=== PATIENT | male | born 1970 | race Caucasian/White ===

== ENCOUNTER 2019-07-25 00:47 | Day surgery (SDC) | payer OTHER, SELFPAY ==
[2019-07-24 10:16] VITALS: BMI 29.9
[2019-07-25 08:57] VITALS: BP 145/108; PULSE 80; RESP 16; TEMP 36.5; O2SAT 99
--- NOTE | 2019-07-25 09:10 | P.HP_ITS ---
History of Present Illness History of Present Illness Consent: Risks, benefits, and alternatives have been discussed and questions answered. Patient agrees to proceed with procedure. Chief complaint: Epigastric Pain Narrative: Robles Roca is a 48 year old W male referred for gastroscopy for evaluation of postprandial nausea some abdominal pain. This occurred in April of this past year several months ago. Patient was placed on Prilosec 40 mg daily instead he was doing fine until week ago began having some indigestion some heartburn some substernal burning, While on therapy. He denies any dysphagia odynophagia. [facility] Past Medical History Medical History Nausea Surgical History Surgical History (Updated 07/25/19 @ 09:13 by Kendall Rodríguez MD) History of appendectomy Family History Family History Father Hypertension Mother Family history of lupus erythematosus Other Carcinoma of colon Family history of malignant neoplasm of stomach Social History Social History Smoking status: Former smoker Smoking end date: 05/30/04 Alcohol intake: current Meds Home Medications and Allergies Home Medications Medication Instructions Recorded Confirmed Type fluticasone propionate 50 1 spray NASAL DAILY PRN 05/28/19 07/25/19 History mcg/actuation nasal spray,suspension amlodipine 2.5 mg tablet 7.5 mg PO DAILY #90 tablet 07/09/19 07/25/19 Rx loratadine [Claritin] 10 mg PO DAILY 07/24/19 07/25/19 History omeprazole 40 mg PO QAM 07/24/19 07/25/19 History Allergies Allergy/AdvReac Type Severity Reaction Status Date / Time No Known Allergies Allergy Unverified 07/25/19 08:41 Vital Signs Vital Signs - 24 hr 07/25/19 08:57 Temperature 36.5 C Pulse Rate 80 Respiratory Rate 16 Blood Pressure 145/108 H Pulse Oximetry 99 Exam Const: Orientation/consciousness: patient oriented x3 Resp: Auscultation: clear to auscultation bilaterally Cardio: Rate: regular rate Rhythm: regular rhythm Heart sounds: no murmurs GI: GI Palp: Yes Soft to palpation, No Tenderness to palpation present (GI), Yes No hepatosplenomegaly present and No Palpable mass present Auscultation: normal bowel sounds Neuro: General: patient oriented x3 and no focal motor deficits Extrem: General: no pedal edema Assessment and Plan Additional Plan EGD for evaluation of dyspepsia post prandiall abdominal pain nausea indigestion
[2019-07-25] MEDS: LACTATED RINGERS 1,000 ML 150 ML IV CONT (09:14)
--- NOTE | 2019-07-25 09:14 | WPDANESEPPF ---
Anes - Initial Pre Proc Eval Procedure: Operation Date: 07/25/19 10:00 Proposed Procedures p Esophagogastroduodenoscopy - Kendall Rodríguez MD Date/Time: 07/25/19 09:14 Surgeon: Kendall Rodríguez MD Pre Op Diagnosis: Epigastric Pain Patient Data Age: 48 Gender: M Height: 5 ft 6 in Weight: 83.7 kg Last Vital Signs Temp 36.5 C 07/25/19 08:57 Pulse 80 07/25/19 08:57 Resp 16 07/25/19 08:57 BP 145/108 H 07/25/19 08:57 Pulse Ox 99 07/25/19 08:57 Allergies Allergy/AdvReac Type Severity Reaction Status Date / Time No Known Allergies Allergy Unverified 07/25/19 08:41 Home Medications Medication Instructions Recorded Confirmed Type fluticasone propionate 50 1 spray NASAL DAILY PRN 05/28/19 07/25/19 History mcg/actuation nasal spray,suspension amlodipine 2.5 mg tablet 7.5 mg PO DAILY #90 tablet 07/09/19 07/25/19 Rx loratadine [Claritin] 10 mg PO DAILY 07/24/19 07/25/19 History omeprazole 40 mg PO QAM 07/24/19 07/25/19 History Patient hx anesthesia problems: none Family hx anesthesia problems: none PMFSH Past Medical History Medical History Nausea Surgical History Surgical History History of appendectomy Family History Family History Father Hypertension Mother Family history of lupus erythematosus Other Carcinoma of colon Family history of malignant neoplasm of stomach Social History Social History Smoking status: Former smoker Smoking end date: 05/30/04 Alcohol intake: current Anes - Eval Final PreProcedure Day of Procedure 07/25/19 09:14 Patient weight: overweight Heart: regular rate and rhythm Lungs: clear to auscultation Airway: Mallampati scale class II Neurological: alert and oriented Last oral intake: >/= 8 hours ASA classification: II Emergent: no Anesthetic plan: proceed Anesthesia type and monitoring: general GIVS and standard monitoring Informed Consent: The patient's anesthetic plan and its attendant risks and benefits were discussed with the patient/family/POA. Questions were solicited and answers provided to the satisfaction of the patient/family/POA.
[2019-07-25] MEDS: BENZOCAINE (*SP) 60 ML SPRAY CAN (HURRICAINE) 1 SPRAY MUCOUS MEM (09:59)
[2019-07-25 10:11] VITALS: BP 109/67; PULSE 68; RESP 19; O2SAT 94
[2019-07-25 10:21] VITALS: BP 121/80; PULSE 73; RESP 24
[2019-07-25 10:31] VITALS: BP 126/86; PULSE 67; RESP 24; O2SAT 98
== END 2019-07-25 11:01 | disposition home or self-care (01) ==
PROVIDERS: PCP Family Medicine; Visit Provider Internal Medicine Gastroenterology
PROC: 0DJ08ZZ Inspection of Upper Intestinal Tract, Via Natural or Artificial Opening Endoscopic (ICD-10-PCS; CPT 43235; principal; 2019-07-25 10:00)
DX: R10.13 Epigastric pain (principal); R11.0 Nausea; Z87.891 Personal history of nicotine dependence
CPT/HCPCS: 43239; 87081; 88305; J2704; J7120

== ENCOUNTER 2020-07-14 09:10 | Outpatient (CLI) | payer OTHER, SELFPAY ==
[2020-07-14 09:35] LABS: Hematocrit 42.5 % (42.0-52.0); Hemoglobin 14.3 g/dL (14.0-18.0); Mean Corpuscular HGB Conc 33.6 g/dl (32-36); Mean Corpuscular Hemoglobin 32.1 pg (26-34); Mean Corpuscular Volume 95.3 fl (80-100); Mean Platelet Volume 8.7 fl (7.4-10.4); Platelet Count Result 206 k/mm3 (150-375); Red Blood Count 4.46 M/mm3 (4.6-6.20); Red Cell Distribution Width 12.3 % (11.5-14.5); White Blood Count 5.7 K/mm3 (4.5-10.0)
[2020-07-14 09:42] LABS: Add Urine Microscopic? YES; Appearance Urine Clear (Clear); Bacteria Urine Trace /hpf; Bilirubin Urine Negative (Negative); Blood Urine Negative (Negative); Color Urine Yellow (Yellow); Glucose Urine UA Negative (Negative); Ketones Urine Trace mg/dL (Negative); Leukocyte Esterase Ur Negative LEU/UL (NEGATIVE); Mucus Urine Heavy /lpf; Nitrate Urine Negative (Negative); Protein Urine 1+ mg/dL (Negative); RBC Urine 0-2 /hpf (0-2); Specific Grav Ur 1.027 (1.001-1.035); Urobilinogen Urine Negative mg/dL (<2.0); WBC Urine 0-3 /hpf (0-3)
[2020-07-14 09:50] LABS: Alanine Aminotransferase 27 U/L (4-50); Albumin Level 4.3 g/dL (3.5-5.1); Alkaline Phosphatase 54 U/L (38-126); Anion Gap 5 mmol/L (8-16); Aspartate Amino Transferase 29 U/L (17-59); Blood Urea Nitrogen 17 mg/dL (9-20); Calcium 9.1 mg/dL (8.4-10.2); Carbon Dioxide 31 mmol/L (22-30); Chloride 104 mmol/L (98-107); Cholesterol 166 mg/dL (0-200); Estimated Glomerular Filt Rate > 60; Glucose 87 mg/dL (75-110); HDL Direct 49 mg/dL; Potassium 4.4 mmol/L (3.4-5.0); Sodium 140 mmol/L (137-145); Triglycerides 68 mg/dL (<150)
[2020-07-14 10:01] LABS: LDL Cholesterol Direct 88 mg/dL
== END 2020-07-14 09:11 | disposition home or self-care (01) ==
PROVIDERS: PCP Family Medicine; Visit Provider Family Medicine
DX: I10 Essential (primary) hypertension (principal); Z00.00 Encounter for general adult medical examination without abnormal findings
CPT/HCPCS: 36415; 80053; 80061; 81001; 84443; 85027

== ENCOUNTER 2020-12-31 00:12 | Emergency (ER) | payer OTHER, SELFPAY ==
--- NOTE | ~2020-12-31 | CT_ITS ---
EXAMINATION: CT abdomen pelvis w con DATE: 12/31/2020 03:00 INDICATION: Right lower quadrant abdominal pain TECHNIQUE: Computed tomography (CT) of the abdomen and pelvis was performed with 100 cc Omnipaque 350 intravenous contrast. Automated exposure control and iterative reconstruction technique were employe d. Exam dose: 482.83 mGy-cm total exam DLP. COMPARISON: July 27, 2014 CT abdomen pelvis FINDINGS: The lung bases are clear. Normal heart size. No pericardial or pleural effusion. The liver, gallbladder, bile ducts, spleen, pancreas, adrenal glands and kidneys are unremarkable. No rmal caliber of the abdominal aorta. No intraperitoneal or retroperitoneal or pelvic mass lesion or a denopathy or ascites. Status post appendectomy. Mild colonic diverticulosis; no CT evidence of diverticulitis. No bowel obstruction or intraperitonea l free air. Bilateral L5 pars interarticularis defects without spondylolisthesis. No suspicious osteolytic or ost eoblastic lesions. IMPRESSION: Status post appendectomy Bilateral L5 pars interarticularis defects Reviewed, dictated and finalized at [facility]. Reviewed, dictated and finalized at location [facility].
[2020-12-31 00:15] VITALS: BP 157/99; PULSE 89; RESP 18; TEMP 36.4; O2SAT 100
--- NOTE | 2020-12-31 01:51 | ED.GENADULT ---
HPI - General Adult General Chief complaint: Unspecified Stated complaint: hernia Time Seen by Provider: 12/31/20 01:31 History of Present Illness HPI narrative: Patient 50-year-old gentleman who presents the emergency department with chief complaint of lump in right groin. The patient states has had a burning-like sensation in the right groin area and has noticed that uncomfortable. The patient states this evening he was at work and noticed that a small lump appeared in his groin. Patient states that it is tender to touch reports that he had no vomiting no diarrhea. Patient states he is concerned that he may have a hernia. Related Data Home Medications Medication Instructions Recorded Confirmed fluticasone propionate 50 1 spray NASAL DAILY PRN 05/28/19 07/14/20 mcg/actuation nasal spray,suspension loratadine [Claritin] 10 mg PO DAILY 07/24/19 07/14/20 Allergies Allergy/AdvReac Type Severity Reaction Status Date / Time No Known Allergies Allergy Verified 12/31/20 02:33 Review of Systems Review of Systems: A 10 system review of systems was completed on the patient and is negative except for what is stated in the HPI. Nursing and ancillary documentation was reviewed. [facility] Past Medical History Medical History Nausea Wellness examination Surgical History Surgical History History of appendectomy Family History Family History Father Hypertension Mother Family history of lupus erythematosus Other Carcinoma of colon Family history of malignant neoplasm of stomach Social History Social History Smoking packs per day: 0.5 Smoking cigarettes per day: 10.0 Years smoked: 5 Smoking pack-years: 2.50 Smoking status: Former smoker Tobacco type: cigarettes and smokeless tobacco Second hand tobacco smoke exposure: No Smoking end date: 05/30/04 Alcohol intake: current Drinks per week: 12 Substance use: never Substance use type: does not use Gender identity (if verbalized by the patient): Male Exam Narrative: GENERAL: Well-appearing, well-nourished, and in no acute distress. HEAD: Normocephalic, atraumatic. EYES: PERRLA and EOMI. ENT: Nares clear, no rhinorrhea or epistaxis. Mucous membranes moist. NECK: Supple. CHEST: Clear to auscultation. No respiratory distress. HEART: Regular rate and rhythm. No murmur heard. Normal peripheral pulses. ABDOMEN: Soft, nontender, nondistended, normal active bowel sounds. There is a small lump in the right inguinal area mildly tender to palpation. EXTREMITIES: Normal range of motion. No edema. SKIN: Warm, dry, no rash. NEURO: No focal deficits. Alert and oriented x3. PSYCH: Normal mood and affect. Course Course Emergency Course: CT scan of the abdomen pelvis showed no evidence of acute abnormality Vital Signs Vital signs: Vital Signs Temperature 36.4 C L 12/31/20 00:15 Pulse Rate 89 12/31/20 00:15 Respiratory Rate 18 12/31/20 00:15 Blood Pressure 157/99 H 12/31/20 00:15 Pulse Oximetry 100 12/31/20 00:15 Temperature 36.4 C L 12/31/20 00:15 Pulse Rate 77 12/31/20 02:31 Respiratory Rate 16 12/31/20 02:31 Blood Pressure 149/103 H 12/31/20 02:31 Pulse Oximetry 99 12/31/20 02:31 Medical Decision Making Vital Signs Vital Signs: Vital Signs Temperature 36.4 C L 12/31/20 00:15 Pulse Rate 89 12/31/20 00:15 Respiratory Rate 18 12/31/20 00:15 Blood Pressure 157/99 H 12/31/20 00:15 Pulse Oximetry 100 12/31/20 00:15 Temperature 36.4 C L 12/31/20 00:15 Pulse Rate 77 12/31/20 02:31 Respiratory Rate 16 12/31/20 02:31 Blood Pressure 149/103 H 12/31/20 02:31 Pulse Oximetry 99 12/31/20 02:31 Lab Data Result diagrams:
[2020-12-31 02:09] LABS: Basophils Percent Auto 0.4 % (0.2-1.2); Eosinophils Percent Auto 0.2 % (0-4.4); Hematocrit 40.3 % (42.0-52.0); Hemoglobin 13.8 g/dL (14.0-18.0); Immature Granulocyte Absolute 0.01 K/mm3 (0.00-0.031); Immature Granulocyte Percent A 0.2 % (0-0.5); Lymphocytes Absolute Auto 1.02 K/mm3 (0.9-3.2); Mean Corpuscular HGB Conc 34.2 g/dl (32-36); Mean Corpuscular Hemoglobin 32.1 pg (26-34); Mean Corpuscular Volume 93.7 fl (80-100); Mean Platelet Volume 8.8 fl (7.4-10.4); Monocytes Absolute Auto 0.5 K/mm3 (0.1-0.6); Monocytes Percent Auto 9.7 % (2.6-8.5); Neutrophils Absolute Auto 3.8 K/mm3 (1.3-6.7); Neutrophils Percent Auto 70.5 % (45.5-73.1); Platelet Count Result 255 k/mm3 (150-375); Red Cell Distribution Width 12.4 % (11.5-14.5); White Blood Count 5.4 K/mm3 (4.5-10.0)
[2020-12-31 02:11] LABS: Add Urine Microscopic? NO; Appearance Urine Clear (Clear); Bilirubin Urine Negative (Negative); Blood Urine Negative (Negative); Color Urine Straw (Yellow); Glucose Urine UA Negative (Negative); Ketones Urine Negative (Negative); Leukocyte Esterase Ur Negative LEU/UL (Negative); Nitrate Urine Negative (Negative); Protein Urine Negative (Negative); Specific Grav Ur 1.023 (1.001-1.035); Urobilinogen Urine Negative mg/dL (<2.0)
[2020-12-31 02:14] LABS: Lactic Acid Reflex 0.7 mmol/L (0.7-2.1)
[2020-12-31 02:15] LABS: Alanine Aminotransferase 27 U/L (4-50); Albumin Level 4.2 g/dL (3.5-5.1); Alkaline Phosphatase 63 U/L (38-126); Anion Gap 8 mmol/L (8-16); Aspartate Amino Transferase 28 U/L (17-59); Bilirubin,Total 0.7 mg/dL (0.2-1.3); Blood Urea Nitrogen 23 mg/dL (9-20); Calcium 9.4 mg/dL (8.4-10.2); Carbon Dioxide 24 mmol/L (22-30); Chloride 106 mmol/L (98-107); Estimated CRCL calculation 79 ml/min; Estimated Glomerular Filt Rate > 60; Glucose 98 mg/dL (65-110); Lipase 179 U/L (23-300); Potassium 4.4 mmol/L (3.4-5.0); Sodium 138 mmol/L (137-145)
[2020-12-31 02:31] VITALS: BP 149/103; PULSE 77; RESP 16; O2SAT 99
[2020-12-31 04:18] VITALS: BP 146/115; PULSE 82; RESP 16; O2SAT 98
== END 2020-12-31 04:21 | disposition home or self-care (01) ==
PROVIDERS: Emergency Provider Emergency Medicine; PCP Family Medicine
DX: R10.31 Right lower quadrant pain (principal); Z87.891 Personal history of nicotine dependence
CPT/HCPCS: 36415; 74177; 80053; 81003; 83605; 83690; 85025; 99284; Q9967

== ENCOUNTER → 2021-01-14 12:40 | Outpatient (CLI) | payer OTHER, SELFPAY ==
--- NOTE | ~2021-01-14 | US_ITS ---
EXAMINATION: US soft tissue groin RT DATE: 01/14/2021 12:56 INDICATION: Right groin lump. TECHNIQUE: Multiple grayscale and Doppler ultrasound images of the right inguinal region were obtaine d. COMPARISON: CT abdomen and pelvis 12/31/2020 FINDINGS: There are normal right inguinal lymph nodes in the patient's area of concern. IMPRESSION: 1. No abnormal mass or lymphadenopathy in the patient's area of concern in right groin. Reviewed, dictated and finalized at location [facility]. IMPRESSION: 1. No abnormal mass or lymphadenopathy in the patient's area of concern in righ t groin.
== END ==
PROVIDERS: PCP Family Medicine; Visit Provider Physician Assistant
DX: R19.09 Other intra-abdominal and pelvic swelling, mass and lump (principal)
CPT/HCPCS: 76882

== ENCOUNTER 2021-07-08 10:28 | Outpatient (CLI) | payer OTHER, SELFPAY ==
[2021-07-08 10:59] LABS: Basophils Percent Auto 0.3 % (0.2-1.2); Eosinophils Percent Auto 0.7 % (0-4.4); Hematocrit 44.4 % (42.0-52.0); Hemoglobin 14.8 g/dL (14.0-18.0); Immature Granulocyte Absolute 0.02 K/mm3 (0.00-0.031); Immature Granulocyte Percent A 0.3 % (0-0.5); Lymphocytes Absolute Auto 1.81 K/mm3 (0.9-3.2); Lymphocytes Percent Auto 31.1 % (18.3-44.2); Mean Corpuscular HGB Conc 33.3 g/dl (32-36); Mean Corpuscular Hemoglobin 32.1 pg (26-34); Mean Corpuscular Volume 96.3 fl (80-100); Mean Platelet Volume 8.6 fl (7.4-10.4); Monocytes Absolute Auto 0.5 K/mm3 (0.1-0.6); Monocytes Percent Auto 9.1 % (2.6-8.5); Neutrophils Absolute Auto 3.4 K/mm3 (1.3-6.7); Neutrophils Percent Auto 58.5 % (45.5-73.1); Platelet Count Result 267 k/mm3 (150-375); Red Blood Count 4.61 M/mm3 (4.6-6.20); Red Cell Distribution Width 12.4 % (11.5-14.5); White Blood Count 5.8 K/mm3 (4.5-10.0)
[2021-07-08 11:02] LABS: Add Urine Microscopic? NO; Appearance Urine Clear (Clear); Bilirubin Urine Negative (Negative); Blood Urine Negative (Negative); Color Urine Yellow (Yellow); Glucose Urine UA Negative (Negative); Ketones Urine Negative (Negative); Leukocyte Esterase Ur Negative LEU/UL (NEGATIVE); Nitrate Urine Negative (Negative); Protein Urine Negative (Negative); Specific Grav Ur 1.027 (1.001-1.035); Urobilinogen Urine Negative mg/dL (<2.0)
[2021-07-08 11:08] LABS: Alanine Aminotransferase 24 U/L (4-50); Albumin Level 4.5 g/dL (3.5-5.1); Alkaline Phosphatase 61 U/L (38-126); Anion Gap 3 mmol/L (8-16); Aspartate Amino Transferase 30 U/L (17-59); Bilirubin,Total 1.2 mg/dL (0.2-1.3); Blood Urea Nitrogen 22 mg/dL (9-20); Calcium 9.3 mg/dL (8.4-10.2); Carbon Dioxide 29 mmol/L (22-30); Chloride 105 mmol/L (98-107); Cholesterol 186 mg/dL (0-200); Estimated Glomerular Filt Rate > 60; Glucose 103 mg/dL (65-110); HDL Direct 59 mg/dL; Potassium 4.5 mmol/L (3.4-5.0); Sodium 137 mmol/L (137-145); Triglycerides 115 mg/dL (<150)
[2021-07-08 11:19] LABS: LDL Cholesterol Direct 90 mg/dL
[2021-07-08 11:39] LABS: Prostate Specific Antigen 0.6 ng/mL (< OR = 4.0)
== END 2021-07-08 10:29 | disposition home or self-care (01) ==
LOC: ANHLAB 10:30
PROVIDERS: PCP Family Medicine; Visit Provider Physician Assistant
DX: J30.9 Allergic rhinitis, unspecified (principal); G89.29 Other chronic pain; I10 Essential (primary) hypertension; M54.50 Low back pain, unspecified
CPT/HCPCS: 36415; 80053; 80061; 81003; 84153; 84443; 85025

== ENCOUNTER 2022-01-07 11:06 | Outpatient (CLI) | payer OTHER, SELFPAY ==
[2022-01-07 11:51] LABS: Alanine Aminotransferase 19 U/L (6-50); Albumin Level 4.3 g/dL (3.5-5.1); Alkaline Phosphatase 59 U/L (38-126); Anion Gap 8 mmol/L (8-16); Aspartate Amino Transferase 30 U/L (17-59); Bilirubin,Total 1.3 mg/dL (0.2-1.3); Blood Urea Nitrogen 13 mg/dL (9-20); Calcium 8.9 mg/dL (8.4-10.2); Carbon Dioxide 29 mmol/L (22-30); Chloride 101 mmol/L (98-107); Estimated Glomerular Filt Rate > 60; Glucose 92 mg/dL (65-110); Potassium 3.8 mmol/L (3.4-5.0); Sodium 138 mmol/L (137-145)
== END 2022-01-07 11:07 | disposition home or self-care (01) ==
LOC: ANHLAB 11:07
PROVIDERS: PCP Family Medicine; Visit Provider Family Medicine
DX: I10 Essential (primary) hypertension (principal)
CPT/HCPCS: 36415; 80053

== ENCOUNTER 2022-05-10 13:28 | Outpatient (CLI) | payer OTHER, SELFPAY ==
--- NOTE | ~2022-05-10 | XR_ITS ---
EXAM: XR lumbar spine 2-3V DATE: 05/10/2022 13:47 HISTORY: M54.5 - Low back pain, hx: loss of disc space, HNP . COMPARISON: None available. FINDINGS: Surgical clips overlie the right upper pelvis 5 nonrib-bearing lumbar-type vertebral bodies . Pedicles intact. Multilevel mild retrolistheses, presumably on a degenerative basis, stable. Verteb ral body heights unchanged. Multilevel disc space narrowing and marginal osteophytosis. Bilateral par s defects at L5. No fracture or dislocation. IMPRESSION: Multilevel degenerative disc disease. Bilateral L5 pars defects.. Reviewed, dictated and finalized at location K. [employer]
== END 2022-05-10 13:29 | disposition home or self-care (01) ==
PROVIDERS: PCP Family Medicine; Visit Provider Nurse Practitioner Family
DX: M51.36 Other intervertebral disc degeneration, lumbar region (principal)
CPT/HCPCS: 72100

== ENCOUNTER 2022-06-22 11:00 | Outpatient (CLI) | payer OTHER, SELFPAY ==
--- NOTE | ~2022-06-22 | CT_ITS ---
EXAMINATION: CT abdomen pelvis wo con DATE: 06/22/2022 11:24 INDICATION: Left lower quadrant abdominal pain. TECHNIQUE: Computed tomography (CT) of the abdomen and pelvis was performed without intravenous contr ast. Automated exposure control and iterative reconstruction technique were employed. The dose-length product was 618.95 mGy-cm. COMPARISON: CT abdomen and pelvis 12/31/2020 FINDINGS: The visualized portions of the lung bases are clear without pneumonia or pleural effusion. The heart size is normal. No pericardial effusion. The liver, gallbladder, spleen, pancreas, adrenal glands, and kidneys are normal. There is no urolithiasis. The prostate is mildly enlarged. There are no dilated loops of bowel. There are changes of appendectomy. There is fat stranding around an epiplo ic appendage of descending colon, consistent with epiploic appendagitis. There are no pathologically enlarged lymph nodes. There is no free intraperitoneal fluid. There are benign bone islands in right ischium. There is mild chronic anterior wedging of multiple vertebral bodies. There are chronic bilat eral L5 pars defects. There is mild thoracolumbar spondylosis. There is a benign bone island in L1 ve rtebral body. IMPRESSION: 1. Epiploic appendagitis of descending colon. Reviewed, dictated and finalized at location A. [employer]
== END 2022-06-22 11:01 | disposition home or self-care (01) ==
PROVIDERS: PCP Family Medicine; Visit Provider Physician Assistant
DX: R10.32 Left lower quadrant pain (principal); K63.89 Other specified diseases of intestine
CPT/HCPCS: 74176

== ENCOUNTER 2022-07-14 13:20 | Outpatient (CLI) | payer OTHER, SELFPAY ==
[2022-07-14 13:35] LABS: Appearance Urine Clear (Clear); Bilirubin Urine Negative (Negative); Blood Urine Negative (Negative); Color Urine Yellow (Yellow); Glucose Urine UA Negative (Negative); Ketones Urine Negative (Negative); Leukocyte Esterase Ur Negative LEU/UL (NEGATIVE); Nitrate Urine Negative (Negative); Protein Urine Negative (Negative); Urobilinogen Urine 0.2 mg/dL (<2.0); pH Urine 5.5 (5.0-9.0)
[2022-07-14 13:40] LABS: Hematocrit 41.3 % (42.0-52.0); Hemoglobin 14.1 g/dL (14.0-18.0); Mean Corpuscular HGB Conc 34.1 g/dl (32-36); Mean Corpuscular Hemoglobin 31.5 pg (26-34); Mean Corpuscular Volume 92.4 fl (80-100); Mean Platelet Volume 8.8 fl (7.4-10.4); Platelet Count Result 272 k/mm3 (150-375); Red Blood Count 4.47 M/mm3 (4.6-6.20); Red Cell Distribution Width 12.6 % (11.5-14.5); White Blood Count 6.4 K/mm3 (4.5-10.0)
[2022-07-14 13:46] LABS: Alanine Aminotransferase 32 U/L (6-50); Albumin Level 4.6 g/dL (3.5-5.1); Alkaline Phosphatase 69 U/L (38-126); Anion Gap 8 mmol/L (8-16); Aspartate Amino Transferase 29 U/L (17-59); Bilirubin,Total 0.7 mg/dL (0.2-1.3); Blood Urea Nitrogen 23 mg/dL (9-20); Calcium 8.6 mg/dL (8.4-10.2); Carbon Dioxide 27 mmol/L (22-30); Chloride 105 mmol/L (98-107); Cholesterol 196 mg/dL (0-200); Estimated Glomerular Filt Rate > 60; Glucose 102 mg/dL (65-110); HDL Direct 49 mg/dL; Potassium 4.3 mmol/L (3.4-5.0); Sodium 140 mmol/L (137-145); Triglycerides 66 mg/dL (<150)
[2022-07-14 13:46] LABS: Mucus Urine Few /lpf; RBC Urine 0-2 /hpf (0-2); WBC Urine 0-3 /hpf (0-3)
[2022-07-14 13:52] LABS: Add Urine Microscopic? NO
[2022-07-14 13:56] LABS: LDL Cholesterol Direct 106 mg/dL
[2022-07-14 14:14] LABS: Prostate Specific Antigen 0.7 ng/mL (< OR = 4.0)
== END 2022-07-14 13:21 | disposition home or self-care (01) ==
LOC: ANHLAB 13:22
PROVIDERS: PCP Family Medicine; Visit Provider Family Medicine
DX: Z00.00 Encounter for general adult medical examination without abnormal findings (principal); I10 Essential (primary) hypertension; E78.5 Hyperlipidemia, unspecified; R35.1 Nocturia
CPT/HCPCS: 36415; 80053; 80061; 81003; 84153; 85027

== ENCOUNTER 2023-01-14 11:41 | Outpatient (CLI) | payer OTHER, SELFPAY ==
[2023-01-14 12:42] LABS: Alanine Aminotransferase 29 U/L (6-50); Albumin Level 4.6 g/dL (3.5-5.1); Alkaline Phosphatase 69 U/L (38-126); Anion Gap 7 mmol/L (8-16); Aspartate Amino Transferase 31 U/L (17-59); Bilirubin,Total 1.8 mg/dL (0.2-1.3); Blood Urea Nitrogen 14 mg/dL (9-20); Calcium 8.8 mg/dL (8.4-10.2); Carbon Dioxide 28 mmol/L (22-30); Chloride 103 mmol/L (98-107); Estimated Glomerular Filt Rate > 60; Glucose 97 mg/dL (65-110); Potassium 3.9 mmol/L (3.4-5.0); Sodium 138 mmol/L (137-145)
[2023-01-14 13:10] LABS: Vitamin D 25 Hydroxy 37.8 ng/mL
== END 2023-01-14 11:42 | disposition home or self-care (01) ==
LOC: ANHLAB 11:42
PROVIDERS: PCP Family Medicine; Visit Provider Family Medicine
DX: Z00.00 Encounter for general adult medical examination without abnormal findings (principal); E55.9 Vitamin D deficiency, unspecified; I10 Essential (primary) hypertension; E78.5 Hyperlipidemia, unspecified; R35.1 Nocturia
CPT/HCPCS: 36415; 80053; 82306; 84443

== ENCOUNTER 2023-07-20 12:13 | Outpatient (CLI) | payer OTHER, SELFPAY ==
[2023-07-20 12:46] LABS: Hematocrit 41.5 % (42.0-52.0); Hemoglobin 14.2 g/dL (14.0-18.0); Mean Corpuscular HGB Conc 34.2 g/dl (32-36); Mean Corpuscular Hemoglobin 31.9 pg (26-34); Mean Corpuscular Volume 93.3 fl (80-100); Mean Platelet Volume 8.8 fl (7.4-10.4); Platelet Count Result 274 k/mm3 (150-375); Red Blood Count 4.45 M/mm3 (4.6-6.20); Red Cell Distribution Width 12.5 % (11.5-14.5); White Blood Count 5.8 K/mm3 (4.5-10.0)
[2023-07-20 12:56] LABS: Alanine Aminotransferase 21 U/L (6-50); Albumin Level 4.3 g/dL (3.5-5.1); Alkaline Phosphatase 66 U/L (38-126); Anion Gap 6 mmol/L (8-16); Aspartate Amino Transferase 25 U/L (17-59); Bilirubin,Total 1.1 mg/dL (0.2-1.3); Blood Urea Nitrogen 16 mg/dL (9-20); Calcium 9.2 mg/dL (8.4-10.2); Carbon Dioxide 26 mmol/L (22-30); Chloride 104 mmol/L (98-107); Cholesterol 174 mg/dL (0-200); Estimated Glomerular Filt Rate > 60; Glucose 108 mg/dL (65-110); HDL Direct 50 mg/dL; Potassium 3.8 mmol/L (3.4-5.0); Sodium 136 mmol/L (137-145); Triglycerides 173 mg/dL (<150)
[2023-07-20 13:04] LABS: Appearance Urine Clear (Clear); Bilirubin Urine Negative (Negative); Blood Urine Negative (Negative); Color Urine Yellow (Yellow); Glucose Urine UA Negative (Negative); Ketones Urine Negative (Negative); Leukocyte Esterase Ur Negative LEU/UL (NEGATIVE); Nitrate Urine Negative (Negative); Protein Urine Negative (Negative); Specific Grav Ur 1.017 (1.001-1.035); Urobilinogen Urine 0.2 mg/dL (<2.0)
[2023-07-20 13:06] LABS: LDL Cholesterol Direct 92 mg/dL
[2023-07-20 13:07] LABS: Add Urine Microscopic? NO
[2023-07-20 13:26] LABS: Prostate Specific Antigen 0.7 ng/mL (< OR = 4.0)
== END 2023-07-20 12:14 | disposition home or self-care (01) ==
LOC: ANHLAB 12:14
PROVIDERS: PCP Family Medicine; Visit Provider Family Medicine
DX: Z00.00 Encounter for general adult medical examination without abnormal findings (principal); E78.5 Hyperlipidemia, unspecified; I10 Essential (primary) hypertension; R35.1 Nocturia
CPT/HCPCS: 36415; 80053; 80061; 81003; 84153; 84443; 85027

== ENCOUNTER 2023-09-06 13:31 | Outpatient (CLI) | payer OTHER, SELFPAY ==
--- NOTE | 2023-09-06 13:38 | ECHO_ITS ---
Patient Info Name: Robles Roca Age: 52 years : 1970 Gender: Male Ht: 66 in Wt: 185 lbs BSA: 2.00 m2 HR: 69 bpm BP: 136 / 101 mmHg Heart Rhythm: Sinus Rhythm Technical Quality: Good Exam Date: 09/06/2023 2:05 PM Exam Location: Echo Lab Patient Status: Outpatient Admit Date: 09/06/2023 Staff Ordering Physician: Tereza Oliva PA-C Hunting Sales Leader: Osvaldo Floyd RDCS Attending Provider: Tereza Oliva PA-C Exam Type: CA echo doppler color flow Study Info Indications - PRIMARY CENTRAL SLEEP APNEA Complete two-dimensional, color flow and Doppler transthoracic echocardiogram is performed. Summary 1. Complete two-dimensional, color flow and Doppler transthoracic echocardiogram is performed. 2. Left ventricular chamber dimension is normal. 3. Left ventricular systolic function is normal, estimated at 60-65%. 4. The left ventricular diastolic function is grade I diastolic dysfunction. 5. E/e' 6 is not elevated. 6. There is trace tricuspid valve regurgitation. 7. No pulmonary hypertension, estimated pulmonary arterial systolic pressure is 27 mmHg. 8. There is trace pulmonic regurgitation. Left Ventricle E/e' 6 is not elevated. Left ventricular chamber dimension is normal. Left ventricular systolic function is normal, estimated at 60-65%. The left ventricular diastolic function is grade I diastolic dysfunction. Right Ventricle Right ventricular systolic function is normal and with normal TAPSE 2.4 cm. Right ventricular chamber dimension is normal. Left Atria Left atrial chamber dimension is normal. Right Atria Right atrial chamber dimension is normal. Aortic Valve The aortic valve is trileaflet. There is no aortic valve stenosis. There is no aortic valve regurgitation. Pulmonic Valve There is trace pulmonic regurgitation. Mitral Valve There is no mitral valve stenosis. There is no mitral valve regurgitation. Tricuspid Valve There is trace tricuspid valve regurgitation. No pulmonary hypertension, estimated pulmonary arterial systolic pressure is 27 mmHg. Pericardium/Pleural There is no pericardial effusion. Inferior Vena Cava Normal inferior vena cava with >50% collapse upon inspiration consistent with normal right atrial pressure, 5 mmHg. Aorta The aortic root size at the sinus of Valsalva is normal. Left Ventricular Outflow Tract Name Value Normal LVOT 2D LVOT Diameter 2.2 cm LVOT Doppler LVOT Peak Gradient 3 mmHg LVOT Mean Gradient 2 mmHg LVOT VTI 22 cm LVOT VTI/AV VTI Ratio 0.8 LVOT Stroke Volume 80 ml LVOT CO 5.0 l/min LVOT CI 2.5 l/min/m2 Pulmonic Valve Name Value Normal RVOT Doppler RVOT Peak Gradient 1 mmHg PV Doppler
== END 2023-09-06 13:32 | disposition home or self-care (01) ==
PROVIDERS: PCP Family Medicine; Visit Provider Physician Assistant
DX: G47.31 Primary central sleep apnea (principal); R93.1 Abnormal findings on diagnostic imaging of heart and coronary circulation; I07.1 Rheumatic tricuspid insufficiency; I37.1 Nonrheumatic pulmonary valve insufficiency
CPT/HCPCS: 93306

== ENCOUNTER 2023-11-24 09:25 | Emergency (ER) | payer OTHER, SELFPAY ==
[2023-11-24 09:37] VITALS: BP 134/93; PULSE 76; RESP 16; TEMP 36.2; O2SAT 98
--- NOTE | 2023-11-24 10:06 | ED.URI ---
HPI - URI/Sore Throat General Chief Complaint: Upper Respiratory Infection Stated Complaint: note for covid Source: patient and RN notes reviewed Mode of arrival: ambulatory Limitations: no limitations History of Present Illness HPI Narrative: 53-year-old male presented after tested positive for COVID at home 2 days ago. He states he had headache, body aches, sinus pressure/congestion, cough, fever/chills. 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 Denies sob, wheezing, n/v/d. Has not needed to take anything for symptoms. MD elicited complaint: cough Related Data Home Medications Medication Instructions Recorded Confirmed fluticasone propionate 50 1 spray intranasal DAILY Congestion 05/28/19 10/28/23 mcg/actuation nasal spray,suspension cetirizine 10 mg tablet (Zyrtec) 10 mg PO DAILY 11/24/23 11/24/23 Allergies Allergy/AdvReac Type Severity Reaction Status Date / Time benzonatate Allergy Mild Palpitation Verified 11/24/23 10:01 s meloxicam Allergy Mild Rash Verified 11/24/23 10:01 Review of Systems Review of Systems: CONSTITUTIONAL: Endorses malaise, chills, sweats, fever EYES: Denies visual changes, redness, or discharge ENT: Reports rhinorrhea, congestion, denies sinus pain, otalgia, sore throat CARDIOVASCULAR: Denies chest pain, palpitations, edema RESPIRATORY: Reports cough, post nasal drainage. Denies dyspnea GASTROINTESTINAL: Denies abdominal pain, nausea, vomiting, diarrhea SKIN: Denies rash or itching MUSCULOSKELETAL: Endorses myalgia PMFSH Past Medical History Medical History Nausea CRUZITO (obstructive sleep apnea) Wellness examination Surgical History Surgical History History of appendectomy Family History Family History Father Hypertension Mother Family history of lupus erythematosus Other Carcinoma of colon Family history of malignant neoplasm of stomach Social History Social History Smoking packs per day: 0.5 Smoking cigarettes per day: 10.0 Years smoked: 5 Smoking pack-years: 2.50 Smoking status: Former smoker Tobacco type: cigarettes and smokeless tobacco Second hand tobacco smoke exposure: No Smoking end date: 05/30/04 Alcohol intake: current Drinks per week: 12 Substance use: never Substance use type: does not use Living arrangements: with family Occupation/Education: occupation Gender identity (if verbalized by the patient): Male Exam Narrative: GENERAL: well-appearing EYES: PERRLA, conjunctivae clear ENT: Mucous membranes moist. TM pearly krause with dull light reflex bilaterally; no tragal tenderness. Oropharynx erythematous without lesions or exudate, no drooling, no hoarseness, no trismus, uvula midline. CHEST: Clear to auscultation, breath sounds equal. HEART: Regular rate and rhythm. No murmur heard. SKIN: Warm, dry, no rash. NEURO: Alert and oriented x3. PSYCH: Normal mood and affect Course Course Emergency Course: Patient is aware of diagnosis, understands and agrees to treatment plan. Anticipatory guidance given. Patient agrees to follow-up as directed and is aware of reasons to seek care at the emergency department. Portions of this record may have been created with voice recognition software Level of Care: Express Care Visit Vital Signs Vital signs: Vital Signs Temperature 97.1 F L 11/24/23 09:37 Pulse Rate 76 11/24/23 09:37 Respiratory Rate 16 11/24/23 09:37 Blood Pressure 134/93 H 11/24/23 09:37 Pulse Oximetry 98 11/24/23 09:37 Oxygen Delivery Room Air 11/24/23 09:37 Temperature 97.1 F L 11/24/23 09:37 Pulse Rate 76 11/24/23 09:37 Respiratory Rate 16 11/24/23 09:37 Blood Pressure 134/93 H
== END 2023-11-24 10:31 | disposition home or self-care (01) ==
PROVIDERS: Emergency Provider Nurse Practitioner Family; PCP Family Medicine
DX: U07.1 COVID-19 (principal); Z87.891 Personal history of nicotine dependence
CPT/HCPCS: 87426; 99213; G0463

== ENCOUNTER 2024-01-24 11:19 | Outpatient (CLI) | payer OTHER, SELFPAY ==
[2024-01-24 11:49] LABS: Alanine Aminotransferase 21 U/L (6-50); Albumin Level 4.4 g/dL (3.5-5.1); Alkaline Phosphatase 55 U/L (38-126); Anion Gap 9 mmol/L (4-12); Aspartate Amino Transferase 25 U/L (17-59); Bilirubin,Total 1.2 mg/dL (0.2-1.3); Blood Urea Nitrogen 16 mg/dL (9-20); Calcium 8.9 mg/dL (8.4-10.2); Carbon Dioxide 27 mmol/L (22-30); Chloride 102 mmol/L (98-107); Estimated Glomerular Filt Rate > 60; Glucose 80 mg/dL (65-110); Sodium 138 mmol/L (137-145)
== END 2024-01-24 11:20 | disposition home or self-care (01) ==
LOC: ANHLAB 11:20
PROVIDERS: PCP Family Medicine; Visit Provider Family Medicine
DX: I10 Essential (primary) hypertension (principal)
CPT/HCPCS: 36415; 80053

== ENCOUNTER 2024-02-20 14:12 | Emergency (ER) | payer OTHER, SELFPAY ==
[2024-02-20 14:17] VITALS: BP 139/99; PULSE 85; RESP 16; TEMP 36.4; O2SAT 96
--- NOTE | 2024-02-20 15:17 | ED.GENADULT ---
HPI - General Adult General Chief complaint: Wound/Laceration Stated complaint: infected right 2nd finger Time Seen by Provider: 02/20/24 14:36 History of Present Illness HPI narrative: This is a 53-year-old male presenting with a paronychia. Patient was seen by his primary care physician and placed on Keflex. The paronychia has gotten worse. Presenting today for I&D. no systemic signs of illness. Related Data Home Medications Medication Instructions Recorded Confirmed fluticasone propionate 50 1 spray intranasal DAILY Congestion 05/28/19 02/16/24 mcg/actuation nasal spray,suspension cetirizine 10 mg tablet (Zyrtec) 10 mg PO DAILY 11/24/23 02/16/24 Allergies Allergy/AdvReac Type Severity Reaction Status Date / Time benzonatate Allergy Mild Palpitation Verified 02/20/24 14:27 s meloxicam Allergy Mild Rash Verified 02/20/24 14:27 PMFSH Past Medical History Medical History Nausea CRUZITO (obstructive sleep apnea) Wellness examination Surgical History Surgical History History of appendectomy Family History Family History Father Hypertension Mother Family history of lupus erythematosus Other Carcinoma of colon Family history of malignant neoplasm of stomach Social History Social History Smoking packs per day: 0.5 Smoking cigarettes per day: 10.0 Years smoked: 5 Smoking pack-years: 2.50 Smoking status: Former smoker Tobacco type: cigarettes and smokeless tobacco Second hand tobacco smoke exposure: No Smoking end date: 05/30/04 Alcohol intake: current Drinks per week: 12 Substance use: never Substance use type: does not use Do You Feel Safe in your Home?: Yes Lack of Transportation: No Lack of Food: Never True Current Housing: I Have Housing Concerned About Future Housing: No Difficulty Paying Gas/Electric Bills: No Difficulty Paying for Meds: No Currently Unemployed: No Education: Bachelor's Degree Difficulty w/ Childcare or Family Care: No Living arrangements: with family Occupation/Education: occupation Gender identity (if verbalized by the patient): Male Exam Narrative: APPEARANCE: No apparent distress. Head: atraumatic. EYES: EOMI, NOSE: Atraumatic NECK: Trachea midline RESPIRATORY: No increased rate of breathing CARDIOVASCULAR: RRR, ABDOMINAL: Non-distended MUSCULOSKELETAl: Of focal exam of the hand shows a paronychia on the 3rd finger. No swelling of the proximal NEURO: Alert. Moving 4/4 extremities SKIN:: Warm, dry. Normal color PSYCHIATRIC: Normal affect Course Vital Signs Vital signs: Vital Signs Temperature 97.6 F 02/20/24 14:17 Pulse Rate 85 02/20/24 14:17 Respiratory Rate 16 02/20/24 14:17 Blood Pressure 139/99 H 02/20/24 14:17 Pulse Oximetry 96 02/20/24 14:17 Oxygen Delivery Room Air 02/20/24 14:17 Temperature 97.6 F 02/20/24 14:17 Pulse Rate 85 02/20/24 14:17 Respiratory Rate 16 02/20/24 14:17 Blood Pressure 139/99 H 02/20/24 14:17 Pulse Oximetry 96 02/20/24 14:17 Oxygen Delivery Room Air 02/20/24 14:17 Medical Decision Making MDM Narrative Medical decision making narrative: -Course: 53-year-old male presenting with paronychia. Paronychia was drained. We placed on Bactrim. Primary care follow-up in several days. Given return precautions. 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 Disease digital block was performed with 5 cc 1% lidocaine. A stab incision was made with 11 blade and loculations were broken up with
[2024-02-20 15:23] VITALS: BP 135/86; PULSE 17; RESP 16; TEMP 36.8; O2SAT 99
== END 2024-02-20 15:23 | disposition home or self-care (01) ==
LOC: ANHED 15:30
PROVIDERS: Emergency Provider Emergency Medicine; PCP Family Medicine
DX: L03.011 Cellulitis of right finger (principal); G47.33 Obstructive sleep apnea (adult) (pediatric); Z87.891 Personal history of nicotine dependence
CPT/HCPCS: 10060; 99283

== ENCOUNTER 2024-02-22 10:39 | Outpatient (CLI) | payer OTHER, SELFPAY ==
[2024-02-22 12:43] LABS: Folic Acid 15.5 ng/mL (2.76->20)
== END 2024-02-22 10:40 | disposition home or self-care (01) ==
PROVIDERS: PCP Family Medicine; Visit Provider Family Medicine
DX: R41.3 Other amnesia (principal); R53.83 Other fatigue
CPT/HCPCS: 36415; 82607; 82746; 84443

== ENCOUNTER 2024-03-02 06:35 | Outpatient (CLI) | payer OTHER, SELFPAY ==
--- NOTE | ~2024-03-02 | MR_ITS ---
MRI of the brain Clinical History: Memory issues, cognitive problems Technique: Axial and sagittal T1-weighted images were acquired. These were followed by axial T2-weigh marylu, diffusion weighted, gradient, and FLAIR images. Following intravenous administration of 16 cc Mu ltiHance gadolinium, T1-weighted fat-sat imaging was performed in the axial and coronal planes. Findings: No abnormal signal seen in the brain parenchyma. No acute infarct, intracranial hemorrhage, or mass lesion. Ventricles and subarachnoid spaces are unremarkable. Orbits are unremarkable. Paranasal sinuses and m astoid air cells are clear. Major intracranial flow-voids are intact. Sagittal midline structures are intact. No abnormal postcontrast enhancement identified. IMPRESSION: Normal exam. Reviewed, dictated and finalized at location M. IMPRESSION: Normal exam.
== END 2024-03-02 06:36 | disposition home or self-care (01) ==
PROVIDERS: PCP Family Medicine; Visit Provider Physician Assistant Medical
DX: R41.89 Other symptoms and signs involving cognitive functions and awareness (principal); R41.3 Other amnesia; Z87.820 Personal history of traumatic brain injury
CPT/HCPCS: 70553; A9577

== ENCOUNTER 2024-07-30 12:12 | Outpatient (CLI) | payer OTHER, SELFPAY ==
[2024-07-30 12:36] LABS: Basophils Percent Auto 0.4 % (0.2-1.2); Eosinophils Percent Auto 0.8 % (0-4.4); Hematocrit 44.5 % (42.0-52.0); Immature Granulocyte Absolute 0.01 K/mm3 (0.00-0.031); Immature Granulocyte Percent A 0.2 % (0-0.5); Lymphocytes Absolute Auto 1.25 K/mm3 (0.9-3.2); Lymphocytes Percent Auto 24.1 % (18.3-44.2); Mean Corpuscular HGB Conc 33.7 g/dl (32-36); Mean Corpuscular Hemoglobin 31.3 pg (26-34); Mean Corpuscular Volume 92.7 fl (80-100); Mean Platelet Volume 8.5 fl (7.4-10.4); Monocytes Absolute Auto 0.4 K/mm3 (0.1-0.6); Monocytes Percent Auto 7.9 % (2.6-8.5); Neutrophils Absolute Auto 3.5 K/mm3 (1.3-6.7); Neutrophils Percent Auto 66.6 % (45.5-73.1); Platelet Count Result 269 k/mm3 (150-375); Red Cell Distribution Width 12.8 % (11.5-14.5); White Blood Count 5.2 K/mm3 (4.5-10.0)
[2024-07-30 12:48] LABS: Alanine Aminotransferase 30 U/L (6-50); Albumin Level 4.5 g/dL (3.5-5.1); Alkaline Phosphatase 75 U/L (38-126); Anion Gap 11 mmol/L (4-12); Aspartate Amino Transferase 30 U/L (17-59); Bilirubin,Total 2.2 mg/dL (0.2-1.3); Blood Urea Nitrogen 17 mg/dL (9-20); Calcium 9.2 mg/dL (8.4-10.2); Carbon Dioxide 27 mmol/L (22-30); Chloride 101 mmol/L (98-107); Cholesterol 209 mg/dL (0-200); Estimated Glomerular Filt Rate > 60; Glucose 107 mg/dL (65-110); HDL Direct 73 mg/dL; Potassium 4.1 mmol/L (3.4-5.0); Sodium 139 mmol/L (137-145); Triglycerides 169 mg/dL (<150)
[2024-07-30 12:59] LABS: LDL Cholesterol Direct 92 mg/dL
[2024-08-01 14:10] LABS: PSA, Free 0.1 ng/mL; PSA, Total 0.6 ng/mL (< OR = 4.0); Percent Free Prostate Spec Ag 17 % (calc) (>25)
== END 2024-07-30 12:13 | disposition home or self-care (01) ==
LOC: ANHLAB 12:14
PROVIDERS: PCP Family Medicine; Visit Provider Student in an Organized Health Care Education/Training Program
DX: I10 Essential (primary) hypertension (principal); Z13.220 Encounter for screening for lipoid disorders; Z12.5 Encounter for screening for malignant neoplasm of prostate
CPT/HCPCS: 36415; 80053; 80061; 84153; 84154; 85025

== ENCOUNTER 2024-10-16 10:22 | Outpatient (CLI) | payer OTHER, SELFPAY ==
--- NOTE | ~2024-10-16 | XR_ITS ---
3 VIEWS LUMBAR SPINE Ordering provider: Aly Ann PA-C History: . M54.50 - Low back pain, unspecified . Comparison: May 10 2022. FINDINGS: VERTEBRAL BODIES: No visible fracture or subluxation. Degenerative changes of the spine. Spondylolysi s seen at the level of L5 is sensitive DISK SPACES: Narrowing of the disc L1-L2 and L2-L3. SOFT TISSUES: Normal. IMPRESSION: No acute osseous abnormality lumbar spine. 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 Multilevel degenerative disc disease. Reviewed, dictated and finalized at location A.
--- NOTE | ~2024-10-16 | XR_ITS ---
XR sacroiliac joints min 3V Ordering provider: Aly Ann PA-C History: . M54.50 - Low back pain, unspecified . Comparison: None. FINDINGS: BONES: No acute fracture or dislocation. JOINTS: The bilateral sacroiliac joint spaces appear well maintained. No bony fusion of the sacroilia c joints or bony erosions. SOFT TISSUES: Unremarkable. IMPRESSION: NO ACUTE OSSEOUS ABNORMALITY. NORMAL SACROILIAC JOINTS. Reviewed, dictated and finalized at location A.
--- OUTSIDE RECORDS SUMMARY | 2024-10-16 10:38 | XMS_ITS ---
Author Organization [facility] [employer] [place] ([address]) Address [address] [place] [address] Care Team Providers Care Tour Leader Name Role Phone Harrison Landeros MD Primary Care Provider Unavaila Sergio Thornton Unavailable [phone] [employer]Migration, Provider Unavailable Unavailab le REASON FOR VISIT [facility] Encounter Medications Medication SIG (Take, Route, Frequency, Duration) Notes Start Date End Date Status NASAL WASHES N/A DIRECTED INTRANASALLY NEEDED for 30 *Please review for potential replacement for e-prescription and drug interaction check* Active Ryaltris 25 MCG-665 MCG/INH 2 SPRAY(S) IN EACH NOSTRIL 2 TIMES A DAY for 30 DAY(S) *Please review and pick correct strength-formulatio n from [facility] options. If intended option is not shown, discontinue and re-order from Quick Search* 08/24/2022 Active Fluticasone Propionate 50 MCG/ACT 2 spray(s) in each nostril Twice a day for 30 days Active Cetirizine HCl 10 MG 1 tab(s) orally once a day for 30 days Active amLODIPine Besylate 10 MG 1 tab(s) orally once a day for 30 day(s) 01/25/2022 Active Omeprazole 40 MG TAKE 1 CAPSULE BY MOUTH EVERY MORNING for 21 Active Social History Sex Assigned At : Social History Observation Description Sex Assigned At Male Encounters Encounter Location Date Provider Diagnosis [address] [address] 11/12/2023 Provider Jackie Allergic rhinitis due to pollen J30.1 Assessments Encounter Date Diagnosis (ICD Code) Assessment Notes Treatment Notes Treatment Clinical Notes Section Notes 11/12/2023 Allergic rhinitis due to pollen (ICD-10 - J30.1) Plan Of Treatment Medication Medication Name Sig Start Date Stop Date Notes NASAL WASHES N/A DIRECTED INTRANASALLY NEEDED for 30 *Please review for potential replacement for e-prescription and drug interaction check* Fluticasone Propionate 50 MCG/ACT 2 spray(s) in each nostril Twice a day for 30 days Cetirizine HCl 10 MG 1 tab(s) orally onc e a day for 30 days Next Appt Details Provider Name:Andrew RussoLyubov Raman , 11/07/2024 10:30:00 AM, [address], [address] [place] [address], [address], Progress Notes * Kimberley SALVADOROB:1970 ([age] yo M)Acc No.[id number]:11/12/2023 Patient: Robles COFFMAN Provider: Elise Byrne :1970 A ge:52 Y S ex:Male Date:11/12/2023 Address:[address] [place] [address] , [facility] Pcp:Harrison Landeros MD Subjective: * Chief Complaints: * [facility] . [facility] * Medical History: * Medications: T aking Omeprazole 40 MG Capsule Delayed Release TAKE 1 CAPSULE BY MOUTH EVERY MORNING , Taking amLODIPine Besylate 10 MG Tablet 1 tab(s) orally once a day , Taking Ryaltris 25 MCG-665 MCG/INH SPRAY 2 SPRAY(S) IN EACH NOSTRIL 2 TIMES A DAY , Notes to Pharmacist: *Please review and pick correct strength-formulation from [facility]. If intended option is not shown, discontinue and re-order from Quick Search* Objective: * Vitals: Assessment: * Assessment: 1. A llergic rhinitis due to pollen - J30.1 (Primary) Plan: * Treatment: * Billing Information: * Visit Code: * Procedure Codes: * Electronic signature of Prov antonio Mejia on 10/16/2024 at 10:38 AM CDT Sign off status: Pending * Provider: Elise muse Migration Date: 0 11/12/2023 Generated for Delfina farah/Dede/Epi on: 0 10/16/2024 10:38 AM CDT
--- OUTSIDE RECORDS SUMMARY | 2024-10-16 10:38 | XMS_ITS | Patient Health Record ---
Author Organization [facility] [place] ([address]) Address [address] [place] [address] Care Team Providers Care Fight Manager Name Role Phone Harrison Landeros MD Primary Care Provider Unavaila Sergio Thornton Unavailable [phone] Andrew Raman Unavailable [phone] Patience Suarez Unavailable [phone] [employer]-M[employer], Provider Unavailable Unavailab le Allergies No Known Allergies Reason For Referral No Information Medications Medication SIG (Take, Route, Frequency, Duration) Notes Start Date End Date Status CETIRIZINE 10 mg 1 tab(s) orally once a day for 30 days Active NASAL WASHES N/A as directed intranasally as needed for 30 Active EPINEPHrine 0.3 MG/0.3ML as directed Injection as needed for 30 days 08/27/2024 Active FLUTICASONE NASAL 50 mcg/inh 2 spray(s) in each nostril Twice a day for 30 days Active RYALTRIS 25 mcg-665 mcg/inh 2 spray(s) in each nostril 2 times a day for 30 day(s) 08/24/2022 Not-Taking AMLODIPINE 10 mg 1 tab(s) orally once a day for 30 day(s) 01/25/2022 Not-Taking OMEPRAZOLE 40 mg TAKE 1 CAPSULE BY MOUTH EVERY MORNING for 21 Not-Taking Ryaltris 25 MCG-665 MCG/INH 2 SPRAY(S) IN EACH NOSTRIL 2 TIMES A DAY for 30 DAY(S) *Please review and pick correct strength-formulat ion from [employer] options. If intended option is not shown, discontinue and re-order from Quick Search* 08/24/2022 Not-Taking amLODIPine Besylate 10 MG 1 tab(s) orally once a day for 30 day(s) 01/25/2022 Active Omeprazole 40 MG TAKE 1 CAPSULE BY MOUTH EVERY MORNING for 21 Active Fluticasone Propionate 50 MCG/ACT 2 spray(s) in each nostril Twice a day for 30 days Active Cetirizine HCl 10 MG 1 tab(s) orally once a day for 30 days Active Social History Tobacco Use: Social History Observation Description Date Details (start date - stop date) Former Smoker NA - NA Sex Assigned At : Social History Observation Description Sex Assigned At Male Tobacco Control (Standard) Question Answer Notes Tobacco use: Former smoker Problems Problem Type SNOMED Code ICD Code Onset Dates Problem Status W/U Status Risk Notes Problem Chronic allergic conjunctivitis (61184861) Other chronic allergic conjunctivitis (H10.45) Active confirmed Problem Allergic rhinitis caused by pollen (disorder) (94489277) Allergic rhinitis due to pollen (J30.1) Active confirmed Problem Allergic rhinitis (13672172) Other allergic rhinitis (J30.89) Active confirmed Problem Allergic rhinitis caused by animal hair and dander (351966462548413) Allergic rhinitis due to animal (cat) (dog) hair and dander (J30.81) Active confirmed Problem Essential hypertension (93395178) Essential (primary) hypertension (I10) Active confirmed Vital Signs Oximetry 95 % 08/27/2024 Blood pressure diastolic 81 mm Hg 08/27/2024 Height 66 in 08/27/2024 Blood pressure systolic 116 mm Hg 08/27/2024 Weight 185.6 lbs 08/27/2024 BMI 29.95 kg/m2 08/27/2024 Encounters Encounter Location Date Provider Diagnosis [address] [address] 11/12/2023 Provider JASPAL-Caty Allergic rhinitis due to pollen J30.1 [facility] [address] [facility] [address] [place] [address] 08/27/2024 Sergio Ga Allergic rhinitis du e to pollen J30.1 ; Allergic rhinitis due to animal (cat) (dog) hair and dander J30.81 ; Other allergic rhinitis J30.89 and Other chronic allergic conjunctivitis H10.45 [facility] [address] [address] 10/08/2024 Patience Suarez [facility] [address] [facility] [address] [place] [address] 08/27/2024 Andrewcarmen Raman Assessments Encounter Date Diagnosis (ICD Code) Assessment Notes Treatment Notes Treatment Clinical Notes Section Notes 11/12/2023 Allergic rhinitis due to pollen (ICD-10 - J30.1) 08/27/2024 Allergic rhinitis due to pollen (ICD-10 - J30.1) Robles clearly suffers from atopic disease based upon our skin testing and clinical history. Accordingly, we have introduced a new, aggressive medication regimen, discussed nasal washes and allergy-specifi c avoidance measures.Chago mitchell, on Zyrtec and Flonase. Did trial of Ryaltris without benefit. He is interested in SCIT at this point. AIE education given. Keep AIE on hand 2 hours after SCIT. He is interested in traditional build-up. Would premedicate with Zyrtec. Return one month hopefully to start SCIT 08/27/2024 Allergic rhinitis due to animal (cat) (dog) hair and dander (ICD-10 - J30.81) Follow allergen avoidance, meds and consider SCIT as an adjunctive treatment to current regimen 08/27/2024 Other allergic rhinitis (ICD-10 - J30.89) Follow allergen avoidance, meds and consider SCIT as an adjunctive treatment to current regimen 08/27/2024 Other chronic allergic conjunctivitis (ICD-10 - H10.45) Given ocular signs and symptoms I encouraged allergy avoidance measures and meds as above. If symptoms persist, consider adding additional medications including intraocular antihistamine/m ast cell stabilizer, PRN and consider SCIT as an adjunctive measure Plan Of Treatment Next Appt Details Provider Name:Andrew HLyubov Raman , 11/07/2024 10:30:00 AM, [address] [facility], [address], [place], [address], Insurance Providers Payer Name Payer Address Payer Phone Subscriber Number Group Number Insured Name Patient Relationship to Insured Coverage Start Date Coverage End Date [facility] [address] [address] [place] [address] [phone] [id number] Robles Roca Self - patient is the insured Medical (General) History Medical History History ICD Code Allergic rhinitis due to pollen J30.1 Allergic rhinitis due to animal (cat) (d og) hair and dander J30.81 Other allergic rhinitis J30.89 Other chronic allergic conjunctivitis H1 0.45 Surgical History Surgery Date(Month/Year) Appendectomy 2018
--- OUTSIDE RECORDS SUMMARY | 2024-10-16 10:38 | XMS_ITS ---
Author Organization [facility] [email or web address] [facility] [place] ([address]) Address [address] [place] [address] Care Team Providers Care Cork Painter And Grader Name Role Phone Harrison Landeros MD Primary Care Provider Katiuskaa Sergio Thornton Unavailable [phone] REASON FOR VISIT ARC follow-up Social History Sex Assigned At : Social History Observation Description Sex Assigned At Male Encounters Encounter Location Date Provider Diagnosis [facility] [address] [facility] [address] [place] [address] 08/20/2024 Sergio Ga Plan Of Treatment Next Appt Details Provider Name:Andrew Raman , 11/07/2024 10:30:00 AM, [address], [address], [place], [address], Progress Notes * Kimberley SALVADOROB:1970 (6 2 yo M)Acc No.[id number]:08/20/2024 Progress Notes Patient: Singh COFFMANn Provider: Rick Ga PA-C :1970 A ge:53 Y S ex:Male Date:08/20/2024 Address:[address] [id number] Pcp:Harrison Landeros MD Subjective: * Chief Complaints: * 1 . ARC follow-up. * Medical History: Objective: * Vitals: Assessment: Plan: * Treatment: * Billing Information: * Visit Code: * Procedure Codes: * Electronic signature of Gigi Ga PA-C on 10/16/2024 at 10:38 AM CDT Sign off status: Pending * Provider: Rick Ga PA-C Date: 08/20/2024 Generated for Delfina farah/Dede/Epi on: 0 10/16/2024 10:38 AM CDT
--- OUTSIDE RECORDS SUMMARY | 2024-10-16 10:38 | XMS_ITS | CONTINUITY OF CARE DOCUMENT ---
Author Name marlene marlene Address Unknown Organization [facility] Address [address] [facility] [address] [place] [address] Phone [phone] Care Team Providers Care Toy Maker Name Role Phone Moiz BANKS, María Unavailable INSURANCE PROVIDERS Payer name Policy type / Coverage type Lorane red democrat ID [employer] Other [id number]
--- OUTSIDE RECORDS SUMMARY | 2024-10-16 10:39 | XMS_ITS | Clinical Summary ---
Author Organization [facility] Address [address] [place] [address] Care Team Providers Care Service Center Coordinator Name Role Phone Harrison Landeros MD Primary Care Provider Social History Tobacco Use Types Packs/Day Years Used Date Smoking Tobacco: Never Assessed Personal Safety Answer Date Recorded Getting School Help Needed Not on file 08/01 Sex and Gender Information Value Date Recorded Sex Assigned at Not on file Legal Sex Male 6:43 PM OFFICE SUPPORT SPECIALIST Gender Identity Not on file Sexual Orientation Not on file Plan of Treatment Not on file Insurance [facility] Care Teams Service Center Coordinator Relationship Specialty Start Date End Date Harrison Landeros MD [address] [facility] [address] [place] [address] PCP - General Family Medicine 05/11/21
--- OUTSIDE RECORDS SUMMARY | 2024-10-16 10:39 | XMS_ITS | Clinical Summary ---
Author Organization [facility] Address [address] [place] [address] Care Team Providers Care Loft Worker Name Role Phone Unavailable Primary Care Provider Unavailabl e Social History Tobacco Use Types Packs/Day Years Used Date Smoking Tobacco: Never Assessed Sex and Gender Information Value Date Recorded Sex Assigned at Not on file Legal Sex Male 10:02 PM CDT Gender Identity Not on file Sexual Orientation Not on file Plan of Treatment Health Maintenance Due Date Last Done Comments Colorectal Cancer Screening Colonoscopy (10 Years) 1970 Annual Physical 11/12/1974 Hepatitis C 11/12/1989 DTaP, Tdap and Td Vaccines ( 1 - Tdap) 11/12/1990 Hepatitis B Vaccines (1 of 3 - 19+ 3-dose series) 11/12/1990 Pneumococcal Vaccine: 50+ Ye ars (1 of 1 - PCV) 11/12/2021 Zoster Vaccines (1 of 2) 11/12/2021 COVID-19 Vaccine ( - 2023-2 5 season) 2024 Meningococcal B Vaccine Aged Out No l onger eligible based on patient's age to complete this topic Meningococcal Vaccine Aged Out No laura ching eligible based on patient's age to complete this topic RSV Immunizations Under 20 Months Aged Out No longer eligible based on patient's age to complete this topic
--- OUTSIDE RECORDS SUMMARY | 2024-10-16 10:39 | XMS_ITS | Referral Summary ---
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
== END 2024-10-16 10:23 | disposition home or self-care (01) ==
PROVIDERS: PCP Family Medicine; Visit Provider Physician Assistant
DX: M53.3 Sacrococcygeal disorders, not elsewhere classified (principal); M47.896 Other spondylosis, lumbar region; M51.369 Other intervertebral disc degeneration, lumbar region without mention of lumbar back pain or lower extremity pain
CPT/HCPCS: 72110; 72202

== ENCOUNTER 2024-11-05 01:38 | Day surgery (SDC) | payer OTHER, SELFPAY ==
[2024-10-25 08:20] VITALS: BMI 29.0
--- OUTSIDE RECORDS SUMMARY | 2024-11-05 01:40 | XMS_ITS | CONTINUITY OF CARE DOCUMENT ---
Author Name marlene marlene Address Unknown Organization [facility] Address [address] [facility] [address] [place] [address] Phone [phone] Care Team Providers Care Senior Gis Analyst Name Role Phone Moiz BANKS, María Unavailable [phone] INSURANCE PROVIDERS Payer name Policy type / Coverage type Allen red green party ID [employer] Other [id number]
--- OUTSIDE RECORDS SUMMARY | 2024-11-05 01:40 | XMS_ITS | Patient Health Record ---
Author Organization [facility] [place] ([address]) Address [address] [place] [address] Care Team Providers Care Convenience Store Clerk Name Role Phone Harrison Landeros MD Primary Care Provider Unavaila Sergio Thornton Unavailable [phone] Andrew Raman Unavailable [phone] Patience Suarez Unavailable [phone] ZZ-Migration, Provider Unavailable Unavailab le Allergies No Known Allergies Reason For Referral No Information Medications Medication SIG (Take, Route, Frequency, Duration) Notes Start Date End Date Status CETIRIZINE 10 mg 1 tab(s) orally once a day for 30 days Active NASAL WASHES N/A as directed intranasally as needed for 30 Active FLUTICASONE NASAL 50 mcg/inh 2 spray(s) in each nostril Twice a day for 30 days Active RYALTRIS 25 mcg-665 mcg/inh 2 spray(s) in each nostril 2 times a day for 30 day(s) 08/24/2022 Not-Taking AMLODIPINE 10 mg 1 tab(s) orally once a day for 30 day(s) 01/25/2022 Not-Taking EPINEPHrine 0.3 MG/0.3ML as directed Injection as needed for 30 days 08/27/2024 Active OMEPRAZOLE 40 mg TAKE 1 CAPSULE BY [...] Status Risk Notes Problem Chronic allergic conjunctivitis (62708546) Other chronic allergic conjunctivitis (H10.45) Active confirmed Problem Allergic rhinitis caused by pollen (disorder) (25249265) Allergic rhinitis due to pollen (J30.1) Active confirmed Problem Allergic rhinitis (84883164) Other allergic rhinitis (J30.89) Active confirmed Problem Allergic rhinitis caused by animal hair and dander (849879358122200) Allergic rhinitis due to animal (cat) (dog) hair and dander (J30.81) Active confirmed Problem Essential hypertension (04272283) Essential (primary) hypertension (I10) Active confirmed Vital Signs Blood pressure diastolic 81 mm Hg 08/27/2024 Oximetry 95 % 08/27/2024 Height 66 in 08/27/2024 Blood pressure systolic 116 mm Hg 08/27/2024 Weight 185.6 lbs 08/27/2024 BMI 29.95 kg/m2 08/27/2024 Encounters Encounter Location Date Provider Diagnosis [address] [address] 11/12/2023 Provider JASPAL-Caty Allergic rhinitis due to pollen J30.1 [facility] [address] [facility] [address] [place] [address] 08/27/2024 Sergio Ga Allergic rhinitis du e to pollen J30.1 ; Allergic rhinitis due to animal (cat) (dog) hair and dander J30.81 ; Other allergic rhinitis J30.89 and Other chronic allergic conjunctivitis H10.45 [facility] [address] [address] 10/08/2024 Patience Timlupe [facility] [address] [place] [address] 08/27/2024 Andrew Raman [address] [address] 10/31/2024 Patience Suarez Allergic rhinitis du e to pollen J30.1 Assessments Encounter Date Diagnosis [...] as an adjunctive treatment to current regimen 10/31/2024 Allergic rhinitis due to pollen (ICD-10 - J30.1) 08/27/2024 Other allergic rhinitis (ICD-10 - J30.89) [...] Name:Andrew Raman , 11/07/2024 10:30:00 AM, [address] [facility], [address], [place], [address], Insurance Providers Payer Name Payer Address Payer Phone Subscriber Number Group Number Insured Name Patient Relationship to Insured Coverage Start Date Coverage End Date [facility] [address] [address] [place] [address] [id number] Robles Roca Self - patient is the insured Medical (General) History Medical History History ICD Code Allergic rhinitis due to pollen J30.1 Allergic rhinitis due to animal (cat) (d og) hair and dander J30.81 Other allergic rhinitis J30.89 Other chronic allergic conjunctivitis H1 0.45 Surgical History Surgery Date(Month/Year) Appendectomy 2018
--- OUTSIDE RECORDS SUMMARY | 2024-11-05 01:41 | XMS_ITS | Referral Summary ---
Author Organization [facility] Address [address] [place] [address] Care Team Providers Care Informatica Architect Name Role Phone Harrison Landeros MD Primary Care Provider Social History Tobacco Use Types Packs/Day Years Used Date Smoking Tobacco: Never Assessed Personal Safety Answer Date Recorded Getting School Help Needed Not on file 08/01 Sex and Gender Information Value Date Recorded Sex Assigned at Not on file Legal Sex Male 6:43 PM ASSISTANT ART DIRECTOR Gender Identity Not on file Sexual Orientation Not on file Plan of Treatment Not on file Insurance [facility] Care Teams Informatica Architect Relationship Specialty Start Date End Date Harrison Landeros MD [address] [facility] [address] [place] [address] PCP - General Family Medicine 05/11/21
--- OUTSIDE RECORDS SUMMARY | 2024-11-05 01:41 | XMS_ITS ---
Author Organization [facility] [place] ([address]) Address [address] [place] [address] Care Team Providers Care Advisor Consultant Name Role Phone Harrison Landeros MD Primary Care Provider Katiuskaa Sergio Thornton [facility] [phone] REASON FOR VISIT ARC follow-up Social History Sex Assigned At : Social History Observation Description Sex Assigned At Male Encounters Encounter Location Date Provider Diagnosis [facility] [address] [facility] [address] [place] [address] 08/20/2024 Sergio Ga Plan Of Treatment Next Appt Details Provider Name:Andrew Raman , 11/07/2024 10:30:00 AM, [address], [address], [place], [address], Progress Notes * Kimberley SALVADOROB:1970 (6 2 yo M)Acc No.[id number]:08/20/2024 Progress Notes Patient: Singh COFFMANn Provider: Rick Ga PA-C :1970 A ge:53 Y S ex:Male Date:08/20/2024 Address:[address] [id number] Pcp:Harrison Landeros MD Subjective: * Chief Complaints: * 1 . ARC follow-up. * Medical History: Objective: * Vitals: Assessment: Plan: * Treatment: * Billing Information: * Visit Code: * Procedure Codes: * Electronic signature of Gigi Ga PA-C on 11/05/2024 at 01:40 AM CDT Sign off status: Pending * Provider: Rick Ga PA-C Date: 0 08/20/2024 Generated for Delfina farah/Dede/Epi on: 0 11/05/2024 01:40 AM CDT
--- OUTSIDE RECORDS SUMMARY | 2024-11-05 01:41 | XMS_ITS | Clinical Summary ---
Author Organization [facility] Address [address] [place] [address] Care Team Providers Care Manager Control Name Role Phone Harrison Landeros MD Primary Care Provider Social History Tobacco Use Types Packs/Day Years Used Date Smoking Tobacco: Never Assessed Personal Safety Answer Date Recorded Getting School Help Needed Not on file 08/01 Sex and Gender Information Value Date Recorded Sex Assigned at Not on file Legal Sex Male 6:43 PM MARKETING REPORTING ANALYST Gender Identity Not on file Sexual Orientation Not on file Plan of Treatment Not on file Insurance [facility] PLUS [facility] PLUS Care Teams Manager Control Relationship Specialty Start Date End Date Harrison Landeros MD [address] [facility] [address] [place] [address] PCP - General Family Medicine 05/11/21
--- OUTSIDE RECORDS SUMMARY | 2024-11-05 01:41 | XMS_ITS ---
Author Organization [facility] [employer] [place] ([address]) Address [address] [place] [address] Care Team Providers Care Electro Mechanical Assembler Name Role Phone Harrison Landeros MD Primary Care Provider Unavaila Sergio Thornton Unavailable [phone] [employer], Provider Unavailable Unavailab le REASON FOR VISIT [facility] Con[facility] Encounter Medications Medication SIG (Take, Route, Frequency, Duration) Notes Start Date End Date Status NASAL WASHES N/A DIRECTED INTRANASALLY NEEDED for 30 *Please review for potential replacement for e-prescription and drug interaction check* Active Ryaltris 25 MCG-665 MCG/INH 2 SPRAY(S) IN EACH NOSTRIL 2 TIMES A DAY for 30 DAY(S) *Please review and pick correct strength-formulatio n from [facility] options. If intended option is not shown, [...] Male Encounters Encounter Location Date Provider Diagnosis [address] [address] 11/12/2023 Provider Jackie Allergic rhinitis due to [...] RussoLyubov Raman , 11/07/2024 10:30:00 AM, [address], [address] [place] [address], [id number], Progress Notes * Kimberley SALVADOROB:1970 ([age] yo M)Acc No.[id number]:11/12/2023 Patient: Robles COFFMAN Provider: Elise Byrne :1970 A ge:52 Y S ex:Male Date:11/12/2023 Address:[address] [place] [address] , [id number] Pcp:Harrsion Landeros MD Subjective: * Chief Complaints: * 1 . [facility] * Medical History: * Medications: T aking Omeprazole 40 MG Capsule Delayed Release TAKE 1 CAPSULE BY MOUTH EVERY MORNING , Taking amLODIPine Besylate 10 MG Tablet 1 tab(s) orally once a day , Taking Ryaltris 25 MCG-665 MCG/INH SPRAY 2 SPRAY(S) IN EACH NOSTRIL 2 TIMES A DAY , Notes to Pharmacist: *Please review and pick correct strength-formulation from [facility] options. If intended option is not shown, discontinue and re-order from Quick Search* Objective: * Vitals: Assessment: * Assessment: 1. A llergic rhinitis due to pollen - J30.1 (Primary) Plan: * Treatment: * Billing Information: * Visit Code: * Procedure Codes: * Electronic signature of Prov ider [employer] on 11/05/2024 at 01:40 AM CDT Sign off status: Pending * Provider: Elise muse Migration Date: 0 11/12/2023 Generated for Delfina farah/Dede/Epi on: 0 11/05/2024 01:40 AM CDT
[2024-11-05 10:12] VITALS: BP 134/92; PULSE 84; RESP 14; TEMP 35.9; O2SAT 96; BMI 28.5
--- NOTE | 2024-11-05 10:31 | WPDANESEPPF ---
Anes - Initial Pre Proc Eval Procedure: Operation Date: 11/05/24 11:30 Proposed Procedures p Colonoscopy - Jacob Sapp MD Date/Time: 11/05/24 10:31 Surgeon: Jacob Sapp MD Pre Op Diagnosis: screening of colon/rectum Patient Data Age: 53 Gender: M Height: 1.68 m Weight: 80.4 kg Last Vital Signs Temp 35.9 C L 11/05/24 10:12 Pulse 84 11/05/24 10:12 Resp 14 11/05/24 10:12 BP 134/92 H 11/05/24 10:12 Pulse Ox 96 11/05/24 10:12 O2 Del Method Room Air 11/05/24 10:12 Allergies Allergy/AdvReac Type Severity Reaction Status Date / Time benzonatate Allergy Mild Palpitation Verified 11/05/24 10:19 s meloxicam Allergy Mild Rash Verified 11/05/24 10:19 Home Medications ?Medication ?Instructions ?Recorded ?Confirmed ?Type fluticasone propionate 50 1 spray intranasal DAILY Congestion 05/28/19 11/05/24 History mcg/actuation nasal spray,suspension amlodipine 10 mg tablet 10 mg PO DAILY #90 tabs 01/14/23 11/05/24 Rx cetirizine 10 mg tablet (Zyrtec) 10 mg PO DAILY 11/24/23 11/05/24 History omeprazole 40 mg capsule,delayed 40 mg PO QAM #90 caps 07/04/24 11/05/24 Rx release cyclobenzaprine 5 mg tablet 5 mg PO TID PRN muscle spasm #30 10/19/24 10/29/24 Rx tabs tramadol 50 mg tablet 50 mg PO BID PRN pain, severe #14 11/02/24 11/05/24 Rx tabs Patient hx anesthesia problems: none Family hx anesthesia problems: none Results Review: All pre-operative results and documents have been reviewed as part of the pre-operative evaluation. [facility] Past Medical History Medical History CRUZITO (obstructive sleep apnea) Wellness examination Nausea Surgical History Surgical History History of appendectomy Family History Family History Father Hypertension Mother Family history of lupus erythematosus Other Carcinoma of colon Family history of malignant neoplasm of stomach Social History Social History Smoking packs per day: 0 Smoking cigarettes per day: 0.0 Years smoked: 5 Smoking pack-years: 0.00 Smoking status: Former smoker Tobacco type: cigarettes and smokeless tobacco Second hand tobacco smoke exposure: No Smoking end date: 05/30/04 Alcohol intake: current Drinks per week: 12 Substance use: never Substance use type: does not use Do You Feel Safe in your Home?: Yes Lack of Transportation: No Lack of Food: Never True Current Housing: I Have Housing Concerned About Future Housing: No Difficulty Paying Gas/Electric Bills: No Difficulty Paying for Meds: No Currently Unemployed: No Education: Bachelor's Degree Difficulty w/ Childcare or Family Care: No Living arrangements: with family Occupation/Education: occupation Gender identity (if verbalized by the patient): Male Spiritual care concerns: No Anes - Eval Final PreProcedure Day of Procedure 11/05/24 10:31 Patient weight: overweight Heart: regular rate and rhythm Lungs: clear to auscultation Airway: Mallampati scale class II Neurological: alert and oriented Last oral intake: >/= 8 hours ASA classification: III Emergent: no Anesthetic plan: proceed Anesthesia type and monitoring: general GIVS and standard monitoring Results Review: All pre-operative results and documents have been reviewed as part of the pre-operative evaluation. Informed Consent: The patient's anesthetic plan and its attendant risks and benefits were discussed with the patient/family/POA. Questions were solicited and answers provided to the satisfaction of the patient/family/POA.
[2024-11-05] MEDS: LACTATED RINGERS 1,000 ML 150 ML IV CONT (10:32)
--- NOTE | 2024-11-05 10:51 | P.HP_ITS ---
H&P: HPI History of Present Illness Date/Time: 11/05/24 10:51 Chief Complaint: Screening colonoscopy Narrative: This is the patient's first colonoscopy. There are no GI symptoms and there is no family history of colorectal cancer. Review of Systems Review of Systems: All systems reviewed & are unremarkable except as noted in HPI and below PMFSH Past Medical History Medical History CRUZITO (obstructive sleep apnea) Wellness examination Nausea Surgical History Surgical History History of appendectomy Family History Family History Father Hypertension Mother Family history of lupus erythematosus Other Carcinoma of colon Family history of malignant neoplasm of stomach Social History Social History Smoking packs per day: 0 Smoking cigarettes per day: 0.0 Years smoked: 5 Smoking pack-years: 0.00 Smoking status: Former smoker Tobacco type: cigarettes and smokeless tobacco Second hand tobacco smoke exposure: No Smoking end date: 05/30/04 Alcohol intake: current Drinks per week: 12 Substance use: never Substance use type: does not use Do You Feel Safe in your Home?: Yes Lack of Transportation: No Lack of Food: Never True Current Housing: I Have Housing Concerned About Future Housing: No Difficulty Paying Gas/Electric Bills: No Difficulty Paying for Meds: No Currently Unemployed: No Education: Bachelor's Degree Difficulty w/ Childcare or Family Care: No Living arrangements: with family Occupation/Education: occupation Gender identity (if verbalized by the patient): Male Spiritual care concerns: No Meds Home Medications and Allergies Home Medications ?Medication ?Instructions ?Recorded ?Confirmed ?Type fluticasone propionate 50 1 spray intranasal DAILY Congestion 05/28/19 11/05/24 History mcg/actuation nasal spray,suspension amlodipine 10 mg tablet 10 mg PO DAILY #90 tabs 01/14/23 11/05/24 Rx cetirizine 10 mg tablet (Zyrtec) 10 mg PO DAILY 11/24/23 11/05/24 History omeprazole 40 mg capsule,delayed 40 mg PO QAM #90 caps 07/04/24 11/05/24 Rx release cyclobenzaprine 5 mg tablet 5 mg PO TID PRN muscle spasm #30 10/19/24 10/29/24 Rx tabs tramadol 50 mg tablet 50 mg PO BID PRN pain, severe #14 11/02/24 11/05/24 Rx tabs Allergies Allergy/AdvReac Type Severity Reaction Status Date / Time benzonatate Allergy Mild Palpitation Verified 11/05/24 10:19 s meloxicam Allergy Mild Rash Verified 11/05/24 10:19 Vital Signs Vital Signs - 24 hr 11/05/24 10:12 Temperature 96.6 F L Pulse Rate 84 Respiratory Rate 14 Blood Pressure 134/92 H Pulse Oximetry 96 Oxygen Delivery Room Air Exam Const: General: cooperative and healthy appearing Resp: Effort & Inspection: normal respiratory effort and able to speak in complete sentences Auscultation: clear to auscultation bilaterally Cardio: Rate: regular rate Rhythm: regular rhythm GI: Inspection: normal to inspection GI Palp: No No hepatosplenomegaly present Auscultation: normal bowel sounds Rectal Exam: deferred Skin: General skin exam: normal color Psych: Appearance: grossly normal Mental Status: mental status grossly normal Assessment and Plan Assessment and plan (1) Encounter for screening colonoscopy: Code(s): Z12.11 - Encounter for screening for malignant neoplasm of colon Status: Acute Assessment and Plan: The patient is deemed a good candidate for the procedure. Consent signed. W ill proceed.
[2024-11-05] MEDS: SIMETHICONE ORAL SUSPENSION 20 MG/0.3 ML 30 ML BOTTLE 0.6 ML IRRIGATION (11:04)
--- NOTE | 2024-11-05 11:08 | S_PTH ---
PATIENT: Robles Roca LOC: [facility] U#:[id number] AGE/SX: 53/M ROOM: RE11/05/[address]: Jacob Sapp MD : 1970 BED: DIS: 11/05/2024 SPEC #: [id number] RECD: 11/05/24 12:54 STATUS: IRENE REQ #: [id number] JOSETTE: 11/05/24 11:[address]: Jacob Sapp DEPT: [facility] Surgical RECD BY: Gina Sahni ENTERED: 11/05/24 12:55 SP TYPE: Surgical OTHR DR: Harrison Landeros MD Tissues: A - Biopsy Procedures: Hematoxylin and Eosin Stain Gross and Microscopic Level 4
[2024-11-05 11:15] VITALS: BP 110/77; PULSE 88; RESP 21; O2SAT 93
[2024-11-05 11:25] VITALS: BP 108/75; PULSE 80; RESP 19; O2SAT 93
[2024-11-05 11:35] VITALS: BP 128/78; PULSE 80; RESP 19; O2SAT 93
== END 2024-11-05 11:48 | disposition home or self-care (01) ==
PROVIDERS: PCP Family Medicine; Referring Provider Physician Assistant; Visit Provider Internal Medicine Gastroenterology
PROC: 0DJD8ZZ Inspection of Lower Intestinal Tract, Via Natural or Artificial Opening Endoscopic (ICD-10-PCS; CPT 45378; principal; 2024-11-05 11:30)
DX: Z12.11 Encounter for screening for malignant neoplasm of colon (principal); K50.00 Crohn's disease of small intestine without complications; K63.3 Ulcer of intestine; K57.30 Diverticulosis of large intestine without perforation or abscess without bleeding; G47.33 Obstructive sleep apnea (adult) (pediatric); Z79.891 Long term (current) use of opiate analgesic; Z98.890 Other specified postprocedural states; Z87.891 Personal history of nicotine dependence; Z80.0 Family history of malignant neoplasm of digestive organs
CPT/HCPCS: 45380; 88305; J2003; J2704; J7120

== ENCOUNTER 2024-12-03 08:47 | Outpatient (CLI) | payer OTHER, SELFPAY ==
--- NOTE | ~2024-12-03 | XR_ITS ---
EXAMINATION: SACRUM/COCCYX DATE: 12/03/2024 09:53 INDICATION: Hip pain TECHNIQUE: Three views sacrum/coccyx FINDINGS: Comparison the left hip series dated 12/03/2024 There is no displaced fracture of the sacrum. The coccyx demonstrates overall normal morphology with out acute angulation. IMPRESSION: 1. No acute displaced osseous abnormality of the sacrum. Suspicion for occult or nondisplaced sacral fracture can either be evaluated with CT or MRI. 2. Grossly normal morphology to the coccyx without acute angulation. However, due to the wide range of normal variation of the coccyx, acute injury would be best evaluated by clinical examination and patient's symptoms. Reviewed, dictated and finalized at location A.
--- NOTE | ~2024-12-03 | XR_ITS ---
AP view of the pelvis and AP and lateral views of the left hip Clinical history: Pain Findings: No acute fracture or dislocation is seen. Osseous alignment is anatomic. Bilateral hip and SI joint spaces are preserved. Soft tissues are unremarkable. Impression: No significant abnormality is seen. Reviewed, dictated and finalized at [facility]. Impression: No significant abnormality is seen.
--- NOTE | ~2024-12-03 | XR_ITS ---
XR lumbar spine 6V w bending 12/03/2024 09:53 Indication: Lumbar spondylosis. Procedure: 7 views lumbar spine including flexion/extension views. Comparison: 10/16/2024 Findings: There is spondylolysis at L5-S1. There is disc narrowing at all lumbar levels. There is deg enerative retrolisthesis at L2-3. There is grade 1 spondylolisthesis at L5-S1. No acute fracture or t raumatic malalignment. No significant alteration of alignment with flexion/extension. Impression: 1: Moderate lumbar spondylosis with grade 1 spondylolisthesis at L5-S1 secondary to bilateral spondyl olysis. Reviewed, dictated and finalized at location A. Impression: 1: Moderate lumbar spondylosis with grade 1 spondylolisthesis at L5-S1 secondar y to bilateral spondylolysis.
--- NOTE | ~2024-12-03 | MR_ITS ---
MRI of the lumbar spine Clinical History: Radiculopathy Technique: Axial T2-weighted images, and sagittal T1-weighted, T2-weighted, and and T2 fat-sat images were acquired. Findings: There is no fracture or subluxation of the lumbar spine. Vertebral bodies maintain normal h eight and line. No suspicious bone marrow signal abnormality seen. At L1-L2, there is moderate degenerative disc narrowing. There is minimal disc bulge with mild facet arthropathy. No central canal stenosis or neural foraminal narrowing. At L2-L3, there is moderate degenerative distended. There is minimal disc bulge with mild to moderate facet arthropathy. No central canal stenosis or neural foraminal narrowing. At L3-L4, there is minimal disc bulge with mild facet arthropathy. No central canal stenosis. There i s moderate left neural foraminal narrowing. Minimal right neural foraminal narrowing. At L4-L5, there is mild disc bulge with mild facet arthropathy. No central canal stenosis or neural f oraminal narrowing. At L5-S1, there is minimal disc bulge and moderate facet arthropathy. No central canal stenosis or de finite neural foraminal narrowing. Paravertebral soft tissues are unremarkable. Impression: Mild degenerative spondylosis overall, as detailed above. Reviewed, dictated and finalized at location . Impression: Mild degenerative spondylosis overall, as detailed above.
== END 2024-12-03 08:48 | disposition home or self-care (01) ==
LOC: MICIMG 08:48
PROVIDERS: PCP Family Medicine; Visit Provider Nurse Practitioner Adult Health
DX: M47.816 Spondylosis without myelopathy or radiculopathy, lumbar region (principal); M43.17 Spondylolisthesis, lumbosacral region; M46.1 Sacroiliitis, not elsewhere classified; M25.552 Pain in left hip
CPT/HCPCS: 72114; 72148; 72220; 73502

== ENCOUNTER 2025-02-08 09:33 | Outpatient (CLI) | payer OTHER, SELFPAY ==
--- OUTSIDE RECORDS SUMMARY | 2025-02-08 10:03 | XMS_ITS | Clinical Summary ---
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 Gender Identity Not on file Sexual Orientation Not on file Plan of Treatment Not on file Insurance [facility] CHOICE [facility] HMO/PPO Address: [facility] [id number] [place] [phone] [facility] CHOICE PLUS [facility] HMO/PPO Address: [facility] [address] [place] [address] Care Teams Aviation Maintenance Technician Relationship Specialty Start Date End Date Harrison Landeros MD [address] [facility] [address] [place] [address] PCP - General Family Medicine 05/11/21
[2025-02-08 10:54] LABS: Alanine Aminotransferase 36 U/L (6-50); Albumin Level 4.4 g/dL (3.5-5.1); Alkaline Phosphatase 67 U/L (38-126); Anion Gap 8 mmol/L (4-12); Aspartate Amino Transferase 31 U/L (17-59); Bilirubin,Total 1.2 mg/dL (0.2-1.3); Blood Urea Nitrogen 14 mg/dL (9-20); Calcium 8.9 mg/dL (8.4-10.2); Carbon Dioxide 27 mmol/L (22-30); Chloride 101 mmol/L (98-107); Estimated Glomerular Filt Rate > 60; Glucose 95 mg/dL (65-110); Potassium 3.5 mmol/L (3.4-5.0); Sodium 136 mmol/L (137-145); Total Protein 7.8 g/dL (6.3-8.2)
[2025-02-08 11:26] LABS: Thyroid Stimulating Hormone Reflex 2.110 uIU/mL (0.465-4.68)
== END 2025-02-08 09:34 | disposition home or self-care (01) ==
LOC: ANHLAB 09:33
PROVIDERS: PCP Family Medicine
DX: I10 Essential (primary) hypertension (principal); R53.83 Other fatigue
CPT/HCPCS: 36415; 80053; 82306; 84443